=== PATIENT | female | born 1945 | race Native Hawaiian/Other Pacific Islander ===

== ENCOUNTER 2018-07-10 08:01 | Day surgery (SDC) | payer OTHER ==
[2017-05-30 08:24] VITALS: BMI 30.9
[2018-07-10] MEDS ORDERED: Propofol 10 mg/ml Inj (20 ML) ONE ×2 (10:45→10:53)
[2018-07-10 11:25] VITALS: TEMP 98
[2018-07-10 11:41] VITALS: O2SAT 100
[2018-07-10 12:11] VITALS: BP 121/67; PULSE 76; RESP 20
== END 2018-07-10 12:08 | disposition home or self-care (01) ==
LOC: C.ENDO 08:01
PROVIDERS: ATTEND Internal Medicine Gastroenterology
DX: R10.13 Epigastric pain (principal); K31.7 Polyp of stomach and duodenum; K29.70 Gastritis, unspecified, without bleeding; K31.9 Disease of stomach and duodenum, unspecified
CPT/HCPCS: 43239; 43250; 88305; 88342; J2001; J2704